=== PATIENT | female | born 1975 | race Caucasian/White ===

== ENCOUNTER 2016-09-07 18:27 | Emergency (ER) | payer OTHER ==
[2016-09-07 19:00] LABS: #Basophils 0.1 thou/uL (0.0-0.2); #Eosinphils 0.5 thou/uL (0.0-0.7); #Lymphocytes 2.9 thou/uL (1.20-3.40); #Monocytes 0.6 thou/uL (0.11-0.59); #Neutrophils 6.9 thou/uL (1.40-6.50); %Basophils 0.9 % (0.0-1.0); %Eosinophils 4.1 % (0.0-10.0); %Monocytes 5.8 % (0.0-10.0); Hematocrit 42.8 % (36.0-47.0); Mean Platelet Volume 6.4 fL (7.4-10.4); Red Blood Cell (RBC) Count 4.72 mill/uL (4.20-5.40)
[2016-09-07 19:08] LABS: ALT (SGPT) 22 U/L (0-55); AST (SGOT) 16 U/L (5-34); Alkaline Phosphatase 95 U/L (40-150); Anion Gap 14 mmol/L (10-20); BUN (Urea Nitrogen) 15 mg/dL (7.0-18.7); Bilirubin, Total 0.3 mg/dL (0.2-1.2); CK (CPK) 53 U/L (29-168); Calc. Creatinine Clearance 0 mL/min (70-130); Calcium 9.3 mg/dL (7.8-10.44); Carbon Dioxide 25 mmol/L (22-29); Chloride 106 mmol/L (98-107); Estimated GFR-MDRD 67; Globulin 3.2 g/dL (2.4-3.5); Lipase 24 U/L (8-78); Protein, Total 7.3 g/dL (6.0-8.3); Troponin I Less than 0.010 ng/mL (< 0.028)
[2016-09-07 19:29] LABS: Bilirubin Negative (Negative); Blood, Urine Trace (Negative); Glucose, Urine (Dipstick) Negative (Negative); Ketone, Urine Negative (Negative); Nitrite Negative (Negative); Protein, Urine (Dipstick) Negative (Neg-Trace); Urobilinogen 0.2 mg/dL (0.2-1.0)
[2016-09-07] MEDS ORDERED: Ondansetron HCl/PF 4 MG/2 ML Vial ONE (19:37)
[2016-09-07] MEDS ORDERED: Ketorolac Tromethamine 30 MG/ML VIAL ONE (19:37)
[2016-09-07] MEDS ORDERED: ceFAZolin Sodium 1 GM VIAL ONE (19:41)
[2016-09-07 19:42] LABS: Bacteria/HPF Rare-Few HPF (None Seen); RBC/HPF 0-3 HPF (0-3); Squamous Epithelial 0-3 HPF (0-3); WBC/HPF 0-3 HPF (0-3)
[2016-09-07] MEDS ORDERED: Sodium Chloride 0.9% 100 ML ONE (19:42)
== END 2016-09-07 20:00 | disposition short-term general hospital (02) ==
LOC: BURERS 18:27
DX: R10.11 Right upper quadrant pain (principal); I10 Essential (primary) hypertension; E03.9 Hypothyroidism, unspecified; F32.9 Major depressive disorder, single episode, unspecified; Z79.2 Long term (current) use of antibiotics; Z79.899 Other long term (current) drug therapy
CPT/HCPCS: 80053; 81003; 81015; 82553; 83690; 84443; 84484; 85025; 85379; 93005; 94760; 96361; 96374; 96375; J0690; J1885; J2405; J7050

== ENCOUNTER 2017-03-14 08:37 | Emergency (ER) | payer BC, OTHER ==
[2017-03-14] MEDS ORDERED: Prochlorperazine 10 MG/2 ML VIAL ONE (09:05)
[2017-03-14] MEDS ORDERED: Ketorolac Tromethamine 30 MG/ML VIAL ONE (09:05)
[2017-03-14] MEDS ORDERED: diphenhydrAMINE HCl 50 MG/ML 1 ML VIAL ONE (09:05)
[2017-03-14 09:14] LABS: #Basophils 0.1 thou/uL (0.0-0.2); #Eosinphils 0.1 thou/uL (0.0-0.7); #Lymphocytes 1.4 thou/uL (1.20-3.40); #Monocytes 0.4 thou/uL (0.11-0.59); #Neutrophils 9.3 thou/uL (1.40-6.50); %Basophils 0.5 % (0.0-1.0); %Lymphocytes 12.6 % (21.0-51.0); %Monocytes 3.5 % (0.0-10.0); %Neutrophils 82.4 % (42.0-75.0); Hemoglobin 13.7 g/dL (12.0-16.0); Mean Corpuscular HGB CONC 34.5 g/dL (32.0-36.0); Mean Corpuscular Hemoglobin 31.3 pg (27.0-31.0); Mean Corpuscular Volume 90.8 fl (81.0-99.0); Mean Platelet Volume 6.9 fL (7.4-10.4); Platelet Count 202 thou/uL (130-400); RBC Distribution Width 11.7 % (11.5-14.5); Red Blood Cell (RBC) Count 4.38 mill/uL (4.20-5.40); White Blood Cell (WBC) Count 11.3 thou/uL (4.8-10.8)
[2017-03-14 09:21] LABS: Anion Gap 13 mmol/L (10-20); BUN (Urea Nitrogen) 13 mg/dL (7.0-18.7); Calc. Creatinine Clearance 0 mL/min (70-130); Calcium 8.7 mg/dL (7.8-10.44); Carbon Dioxide 22 mmol/L (22-29); Chloride 110 mmol/L (98-107); Estimated GFR-MDRD 79; Potassium 3.7 mmol/L (3.5-5.1); Sodium 141 mmol/L (136-145)
[2017-03-14 09:26] LABS: Glucose 138 mg/dL (70-105)
== END 2017-03-14 09:39 | disposition home or self-care (01) ==
LOC: BURERS 08:37
DX: G43.909 Migraine, unspecified, not intractable, without status migrainosus (principal); I10 Essential (primary) hypertension; E03.9 Hypothyroidism, unspecified; F32.9 Major depressive disorder, single episode, unspecified; Z79.899 Other long term (current) drug therapy
CPT/HCPCS: 80048; 85025; 96361; 96374; 96375; J0780; J1200; J1885

== ENCOUNTER 2017-06-30 15:41 | Emergency (ER) | payer BC | END 2017-06-30 16:07 | disposition home or self-care (01) | LOC: BURERS 15:41 | DX: I47.1 Supraventricular tachycardia (principal); I10 Essential (primary) hypertension; E03.9 Hypothyroidism, unspecified; F32.9 Major depressive disorder, single episode, unspecified; Z79.899 Other long term (current) drug therapy | CPT/HCPCS: 93005 ==

== ENCOUNTER 2017-07-26 14:23 | Outpatient (CLI) | payer OTHER ==
--- NOTE | 2017-07-26 20:48 | RAD ---
LUMBAR SPINE THREE VIEWS: 07/26/17 There is some anterior wedging of the L3 vertebral body that is probably old rather than new. Slight scoliosis convexed left is present. Degenerative changes are seen on each side of L3. At most, there might be some minor L3-L4 disc space narrowing. The SI joints are symmetrical and do not seem sclerotic. IMPRESSION: Mild degenerative changes with slight wedging of the L3 vertebral body, potentially due to old trauma . POS: HOME
== END 2017-07-26 14:24 | disposition home or self-care (01) ==
LOC: BUR/OP 14:23
PROVIDERS: ATTEND Family Medicine
DX: M46.1 Sacroiliitis, not elsewhere classified (principal); M48.56XA Collapsed vertebra, not elsewhere classified, lumbar region, initial encounter for fracture; M47.896 Other spondylosis, lumbar region
CPT/HCPCS: 72100

== ENCOUNTER 2017-10-20 13:25 | Emergency (ER) | payer BC, SELFPAY ==
--- NOTE | 2017-10-20 20:55 | RAD ---
CHEST TWO VIEWS: 10/20/17 Comparison is made with the 04/28/09 study. The heart is normal in size and the lungs are clear. No infiltrate or effusion was seen. There is no lobar consolidation. Mild elevation of the right hemidiaphragm is chronic. The mediastinum was unrema rkable. The trachea is midline. IMPRESSION: No acute finding. POS: HOME
== END 2017-10-20 15:22 | disposition home or self-care (01) ==
LOC: BURERS 13:25
DX: J06.9 Acute upper respiratory infection, unspecified (principal); I10 Essential (primary) hypertension; E03.9 Hypothyroidism, unspecified; F32.9 Major depressive disorder, single episode, unspecified; Z79.899 Other long term (current) drug therapy
CPT/HCPCS: 71046; J7620

== ENCOUNTER → 2018-08-16 | Emergency (ER) | payer OTHER, SELFPAY ==
[~2018-08-16] MED LIST: Dexamethasone 4 MG TAB ONE; Ibuprofen 200 MG TAB ONE
== END ==
LOC: BURERS 21:26
DX: J02.0 Streptococcal pharyngitis (principal); I10 Essential (primary) hypertension; E03.9 Hypothyroidism, unspecified; F32.9 Major depressive disorder, single episode, unspecified; Z79.899 Other long term (current) drug therapy
CPT/HCPCS: 87430; 87804; 99283; J8540

== ENCOUNTER 2018-10-30 12:58 | Emergency (ER) | payer SELFPAY | END 2018-10-30 13:12 | disposition home or self-care (01) | LOC: BURERS 12:58 | DX: J45.901 Unspecified asthma with (acute) exacerbation (principal); J06.9 Acute upper respiratory infection, unspecified; I10 Essential (primary) hypertension; E03.9 Hypothyroidism, unspecified; F32.9 Major depressive disorder, single episode, unspecified; Z87.891 Personal history of nicotine dependence | CPT/HCPCS: 99284 ==

== ENCOUNTER 2019-04-07 18:00 | Emergency (ER) | payer SELFPAY ==
[2019-04-07] MEDS ORDERED: Ondansetron ODT 4 MG TAB ONE (18:16)
[2019-04-07] MEDS ORDERED: Dicyclomine 20 MG TAB ONE (18:16)
== END 2019-04-07 18:20 | disposition home or self-care (01) ==
LOC: BURERS 18:00
DX: A08.4 Viral intestinal infection, unspecified (principal); I10 Essential (primary) hypertension; E03.9 Hypothyroidism, unspecified; Z87.891 Personal history of nicotine dependence
CPT/HCPCS: 99283; Q0162

== ENCOUNTER 2019-05-09 07:01 | Emergency (ER) | payer SELFPAY ==
[2019-05-09] MEDS ORDERED: Ketorolac Tromethamine 30 MG/ML VIAL ONE (07:26)
[2019-05-09 07:33] LABS: #Basophils 0.1 thou/uL (0.0-0.2); #Eosinphils 0.1 thou/uL (0.0-0.7); #Lymphocytes 0.6 thou/uL (1.20-3.40); #Monocytes 0.5 thou/uL (0.11-0.59); #Neutrophils 6.8 thou/uL (1.40-6.50); %Basophils 0.6 % (0.0-1.0); %Eosinophils 0.8 % (0.0-10.0); %Lymphocytes 7.9 % (21.0-51.0); %Monocytes 5.9 % (0.0-10.0); %Neutrophils 84.8 % (42.0-75.0); Hemoglobin 12.8 g/dL (12.0-16.0); Mean Corpuscular HGB CONC 33.2 g/dL (32.0-36.0); Mean Corpuscular Hemoglobin 29.7 pg (27.0-31.0); Mean Corpuscular Volume 89.4 fL (78.0-98.0); Mean Platelet Volume 5.9 fL (7.4-10.4); Platelet Count 154 thou/uL (130-400); RBC Distribution Width 12.2 % (11.5-14.5); Red Blood Cell (RBC) Count 4.33 mill/uL (4.20-5.40)
[2019-05-09 07:49] LABS: ALT (SGPT) 37 U/L (8-55); AST (SGOT) 27 U/L (5-34); Albumin 3.7 g/dL (3.5-5.0); Alkaline Phosphatase 178 U/L (40-110); Anion Gap 15 mmol/L (10-20); BUN (Urea Nitrogen) 10 mg/dL (7.0-18.7); Bilirubin, Total 0.7 mg/dL (0.2-1.2); CK (CPK) 33 U/L (29-168); Calc. Creatinine Clearance 0 mL/min (70-130); Calcium 9.1 mg/dL (7.8-10.44); Carbon Dioxide 21 mmol/L (22-29); Chloride 109 mmol/L (98-107); Estimated GFR-MDRD 66; Glucose 137 mg/dL (70-105); Magnesium 1.5 mg/dL (1.6-2.6); Potassium 3.5 mmol/L (3.5-5.1); Protein, Total 6.7 g/dL (6.0-8.3); Sodium 141 mmol/L (136-145)
[2019-05-09 08:11] LABS: Bilirubin Negative (Negative); Blood, Urine Small (Negative); Clarity Cloudy (Clear); Glucose, Urine (Dipstick) Negative (Negative); Leukocyte Large (Negative); Nitrite Negative (Negative); Protein, Urine (Dipstick) Trace mg/dL (Neg-Trace)
[2019-05-09 08:23] LABS: Bacteria/HPF 2+ HPF (None Seen); Squamous Epithelial 0-3 HPF (0-3); WBC/HPF 21-50 HPF (0-3)
[2019-05-09] MEDS ORDERED: Ciprofloxacin 500 MG TAB ONE (08:43)
== END 2019-05-09 09:32 | disposition home or self-care (01) ==
LOC: BURERS 07:01
DX: N30.00 Acute cystitis without hematuria (principal); N12 Tubulo-interstitial nephritis, not specified as acute or chronic; I10 Essential (primary) hypertension; E03.9 Hypothyroidism, unspecified; Z87.891 Personal history of nicotine dependence; Z79.899 Other long term (current) drug therapy
CPT/HCPCS: 80053; 81003; 81015; 82550; 83605; 83735; 84443; 85025; 87077; 87086; 87186; 93005; 94760; 96361; 96365; 96375; J1885

== ENCOUNTER 2019-05-20 19:14 | Emergency (ER) | payer SELFPAY | END 2019-05-20 20:20 | disposition home or self-care (01) | LOC: BURERS 19:14 | DX: J06.9 Acute upper respiratory infection, unspecified (principal); I10 Essential (primary) hypertension; E03.9 Hypothyroidism, unspecified; Z87.891 Personal history of nicotine dependence; Z79.899 Other long term (current) drug therapy | CPT/HCPCS: 87804; 99283 ==

== ENCOUNTER 2022-02-16 17:40 | Emergency (ER) | payer BC, SELFPAY | END 2022-02-16 18:20 | disposition home or self-care (01) | LOC: BURERS 17:40 | DX: L03.031 Cellulitis of right toe (principal) | CPT/HCPCS: 99283 ==

== ENCOUNTER 2022-08-27 20:34 | Emergency (ER) | payer BC, SELFPAY ==
[2022-08-27] MEDS ORDERED: diphenhydrAMINE 50 MG/ML VIAL ONE (21:01)
[2022-08-27] MEDS ORDERED: Ketorolac Tromethamine 30 MG/ML VIAL ONE (21:01)
[2022-08-27] MEDS ORDERED: Metoclopramide HCl 10 MG/2 ML VIAL ONE (21:01)
== END 2022-08-27 22:10 | disposition home or self-care (01) ==
LOC: BURERS 20:34
DX: G43.909 Migraine, unspecified, not intractable, without status migrainosus (principal); Z79.899 Other long term (current) drug therapy
CPT/HCPCS: 96374; 96375; J1200; J1885; J2765